=== PATIENT | male | born 1995 | race Caucasian/White ===

== ENCOUNTER 2023-01-18 06:19 | Emergency (ER) | payer OTHER ==
[~2023-01-18] VITALS: Ht 182.9 cm; Wt 64.4 kg
[2023-01-18 06:30] VITALS: BP 97/56
--- NOTE | 2023-01-18 06:30 | NUR ---
BIBS WITH CC OF FEVER, BODY ACHES, HEADACHE AND PERIORBITAL PAIN X3 DAYS. DID HOME TEST FOR COVID (-). PATIENT IS AAOX4. ABLE TO MAKE NEEDS KNOWN. PLACED COMFORTABLY IN BED
--- NOTE | 2023-01-18 06:32 | NUR ---
SEEN BY DR RUIZ AT BEDSIDE
--- NOTE | 2023-01-18 06:38 | NUR ---
Patient discharged to home in stable condition. Written and verbal after care instructions given. Patient verbalizes understanding of instruction.
== END 2023-01-18 06:38 | disposition home or self-care (01) ==
LOC: ER 06:19
DX: B34.9 Viral infection, unspecified (principal)